=== PATIENT | female | born 1965 | race Caucasian/White ===

== ENCOUNTER → 2016-09-22 | Outpatient (CLI) | payer BC ==
[~2016-09-22] MED LIST: AMBIEN10 MG; ARIMIDEX1 MG; ATIVAN0.5 MG PO; FLORASTOR250 MG PO; HYDROCODON-ACE1 EAC5; HYDROCODON-ACE1 EAC7; LEXAPRO10 MG; PEPCID40 MG PO; VANCOCIN 250 M250 MG PO; ZOFRAN ODT4 MG PO
== END | disposition home or self-care (01) ==
LOC: AMB 08:56
PROC: 0DX Gastrointestinal System, Transfer (ICD-10-PCS; principal; 2016-09-22)
DX: A04.7 Enterocolitis due to Clostridium difficile (principal); K21.9 Gastro-esophageal reflux disease without esophagitis; E78.00 Pure hypercholesterolemia, unspecified; F33.1 Major depressive disorder, recurrent, moderate; G54.0 Brachial plexus disorders; Z85.3 Personal history of malignant neoplasm of breast
CPT/HCPCS: 71010; G0455; J2405